=== PATIENT | female | born 1980 | race Caucasian/White ===

== ENCOUNTER 2016-07-13 13:21 | Inpatient (IN) | payer MEDICAID, OTHER ==
--- NOTE | 2016-07-13 14:48 | ED ---
General Adult HPI - General Source: patient, RN notes reviewed Mode of arrival: ambulatory Limitations: no limitations <Jaziel Prince - Last Filed: 07/13/16 14:46> <Blair Carrasco - Last Filed: 07/13/16 17:03> - General Chief complaint: Psychiatric Symptoms Stated complaint: Depression Time Seen by Provider: 07/13/16 14:35 - History of Present Illness Initial comments: Patient is a pleasant 36-year-old female presenting to the emergency department with depression. Patient states symptoms have gotten worse over the past week or 2. Patient is unclear why. Patient has suicidal thoughts with thoughts of overdosing on heroin. Patient does have a history of intentional heroin overdose to harm herself in the past. No homicidal thoughts. No hallucinations. No other drug use. No alcohol use. Patient is trying to get herself off of heroin. Patient feels somewhat anxious regarding that. (Jaziel Prince) - Related Data Home Medications Medication Instructions Recorded Confirmed Insulin Glargine [Lantus] 50 unit SQ HS 10/11/13 07/13/16 ALPRAZolam [Xanax] 0.5 mg PO TID PRN 07/13/16 07/13/16 Ibuprofen [Motrin] 800 mg PO TID PRN 07/13/16 07/13/16 Insulin NPL/Insulin Lispro 45 unit SQ AC-TID 07/13/16 07/13/16 [HumaLOG MIX 50-50 VIAL] Allergies Allergy/AdvReac Type Severity Reaction Status Date / Time propoxyphene AdvReac Nausea & Verified 07/13/16 15:21 Vomiting Review of Systems ROS Other: All systems not noted in ROS Statement are negative. Constitutional: Denies: fever Eyes: Denies: eye pain ENT: Denies: ear pain Respiratory: Denies: cough Cardiovascular: Denies: chest pain Endocrine: Denies: fatigue Gastrointestinal: Denies: abdominal pain Genitourinary: Denies: urgency Musculoskeletal: Denies: back pain Skin: Denies: rash Neurological: Denies: headache Psychiatric: Reports: anxiety, depression, suicidal thoughts. Denies: auditory hallucinations, visual hallucinations, homicidal thoughts <Jaziel Prince - Last Filed: 07/13/16 14:46> ROS Other: All systems not noted in ROS Statement are negative. <Blair Carrasco - Last Filed: 07/13/16 17:03> ROS Statement: Those systems with pertinent positive or pertinent negative responses have been documented in the HPI. Past Medical History Past Medical History: Diabetes Mellitus Additional Past Medical History / Comment(s): no appetite History of Any Multi-Drug Resistant Organisms: MRSA Date of last positivie culture/infection: 2010 MDRO Source:: leg Past Surgical History: Section Past Psychological History: Anxiety Smoking Status: Current every day smoker Past Alcohol Use History: None Reported Past Drug Use History: Heroin, Prescription Drug Abuse <Jaziel Prince - Last Filed: 07/13/16 14:46> General Exam Limitations: no limitations General appearance: alert, in no apparent distress Head exam: Present: atraumatic Eye exam: Present: normal appearance, PERRL ENT exam: Present: normal oropharynx Neck exam: Present: normal inspection Respiratory exam: Present: normal lung sounds bilaterally Cardiovascular Exam: Present: regular rate, normal rhythm GI/Abdominal exam: Present: soft. Absent: tenderness Extremities exam: Present: normal inspection. Absent: pedal edema, calf tenderness Neurological exam: Present: alert Psychiatric exam: Present: flat affect Skin exam: Present: normal color <Jaziel Prince - Last Filed: 07/13/16 14:46> Medical Decision Making <Jaziel Prince - Last Filed: 07/13/16 14:46> <Blair Carrasco - Last Filed: 07/13/16 17:03> - Medical Decision Making The patient was evaluated by EPS department and patient will be admitted for inpatient treatment of depression. (Blair Carrasco) - Lab Data Lab Results 07/13/16 07/13/16 Range/Units 15:00 15:41 POC Glucose (mg/dL) 298 H (75-99) mg/dL POC Glu Chin Strap Sewer ID Ema Oliveira Urine Opiates Screen Detected H (NotDetected) Ur Oxycodone Screen Not Detected (NotDetected) Urine Methadone Screen Not Detected (NotDetected) Ur Propoxyphene Screen Not Detected (NotDetected) Ur Barbiturates Screen Not Detected (NotDetected) U Tricyclic Antidepress Not Detected (NotDetected) Ur Phencyclidine Scrn Not Detected (NotDetected) Ur Amphetamines Screen Not Detected (NotDetected) U Methamphetamines Scrn Not Detected (NotDetected) U Benzodiazepines Scrn Not Detected (NotDetected) Urine Cocaine Screen Not Detected (NotDetected) U Marijuana (THC) Screen Not Detected (NotDetected) Disposition <Jaziel Prince - Last Filed: 07/13/16 14:46> <Blair Carrasco - Last Filed: 07/13/16 17:03> Clinical Impression: Depression Disposition: TRANSFER TO PSYCH HOSP/UNIT Condition: Stable
[2016-07-13 15:46] LABS: Glucose,Whole Blood 298 mg/dL (75-99)
[2016-07-13] MEDS ORDERED: INSULIN REGULAR 100 UNIT/ML VIAL SQ STA (15:46)
[2016-07-13] MEDS ORDERED: MAGNESIUM HYDROXIDE 2,400 MG/10 ML CUP PO PRN (16:42)
[2016-07-13] MEDS ORDERED: MAG HYDROX/AL HYDROX/SIMETH 30 ML CUP PO PRN (16:42)
[2016-07-13 17:17] LABS: Glucose,Whole Blood 347 mg/dL (75-99)
[2016-07-13] MEDS: NICOTINE 21MG/24HR PATCH TRANSDERM SCH (17:17)
[2016-07-13] MEDS: LORazepam 1 MG TAB PO PRN ×2 (17:19→21:58)
[2016-07-13 17:54] LABS: Glucose,Whole Blood 376 mg/dL (75-99)
[2016-07-13] MEDS: INSULIN LISPRO (humaLOG) 300 UNIT/3 ML VIAL SQ SCH ×2 (18:08→20:11)
[2016-07-13 20:03] LABS: Glucose,Whole Blood 236 mg/dL (75-99)
[2016-07-13] MEDS: ACETAMINOPHEN TAB 325 MG TAB PO PRN (20:17)
[2016-07-13] MEDS ORDERED: ONDANSETRON 4 MG/2 ML VIAL IM PRN (20:34)
[2016-07-13] MEDS ORDERED: ONDANSETRON 4 MG TAB PO PRN (20:34)
[2016-07-13] MEDS ORDERED: LOPERAMIDE 2 MG CAP PO PRN (20:37)
[2016-07-13] MEDS ORDERED: OLANZapine ODT 5 MG TAB PO PRN (20:40)
[2016-07-13] MEDS: cloNIDine HCL 0.2 MG TAB PO SCH (20:52)
[2016-07-14 05:54] LABS: Glucose,Whole Blood 334 mg/dL (75-99)
[2016-07-14] MEDS: INSULIN LISPRO (humaLOG) 300 UNIT/3 ML VIAL SQ SCH ×7 (07:51→19:52)
[2016-07-14] MEDS: NICOTINE 21MG/24HR PATCH TRANSDERM SCH (07:54)
[2016-07-14] MEDS: cloNIDine HCL 0.2 MG TAB PO SCH ×3 (09:03→20:13)
[2016-07-14] MEDS: ACETAMINOPHEN TAB 325 MG TAB PO PRN (09:26)
[2016-07-14 09:30] LABS: Basophils # (A) 0.1 k/uL (0-0.2); Basophils % (A) 1 %; CH 28.5; CHCM 32.1; Eosinophils # (A) 0.2 k/uL (0-0.7); Eosinophils % (A) 2 %; HDW 2.61; HGB 13.8 gm/dL (11.4-16.0); Luc # (Auto) 0.19; Luc % (Auto) 3; Lymphocytes # (A) 1.9 k/uL (1.0-4.8); Lymphocytes % (A) 27 %; MCH 28.6 pg (25.0-35.0); MCHC 32.1 g/dL (31.0-37.0); MCV 89.2 fL (80.0-100.0); Mean Platelet Volume 7.9; Monocytes # (A) 0.5 k/uL (0-1.0); Monocytes % (A) 7 %; Neutrophils # (A) 4.3 k/uL (1.3-7.7); Neutrophils % (A) 61 %; RBC 4.82 m/uL (3.80-5.40); RDW 13.8 % (11.5-15.5); WBC 7.1 k/uL (3.8-10.6); WBC (Perox) 6.92
[2016-07-14 09:56] LABS: ALT 28 U/L (9-52); AST 26 U/L (14-36); Alkaline Phosphatase 52 U/L (38-126); Anion Gap 9 mmol/L; Blood Urea Nitrogen 11 mg/dL (7-17); Calcium 8.9 mg/dL (8.4-10.2); Carbon Dioxide 24 mmol/L (22-30); Chloride 102 mmol/L (98-107); Glucose 409 mg/dL (74-99); Non-African American GFR(MDRD) >60 (>60 ml/min/1.73 sqM); Potassium 4.5 mmol/L (3.5-5.1); Sodium 135 mmol/L (137-145); Total Protein 6.9 g/dL (6.3-8.2)
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
[2016-07-14 11:11] LABS: Hemoglobin A1C 13.3 % (4.2-6.1)
[2016-07-14 12:48] LABS: Glucose,Whole Blood 447 mg/dL (75-99)
[2016-07-14 13:39] VITALS: BMI 28.8
[2016-07-14] MEDS: LORazepam 1 MG TAB PO PRN (14:19)
--- NOTE | 2016-07-14 14:28 | P.CONS ---
History of Present Illness - Reason for Consult Consult date: 07/14/16 Medical management Requesting physician: Karin Cannon - Chief Complaint Severe depression and suicidal ideation, all. Abuse, diabetes not controll - History of Present Illness 36-year-old female who has been drug use or for a while smoked heavily for long time and known to have history of diabetes used to seen Dr. Norton until a few weeks ago when she left town and coming back to town not a clear whether she's been to see him back or not has not had any medical management for diabetes. Patient has been trying to quit.. For long time but keep falling off the wagon repeatedly. Patient apparently become extremely depress and more suicidal with the frequent. It use her friend drove her over to demurs department at [facility] where was seen and evaluated patient was admitted to the psych unit with the above problem. Review of Systems Constitutional: Reports anorexia, Reports fatigue, Reports lethargy, Reports weight gain, Denies as per HPI, Denies chills, Denies chronic headaches, Denies chronic pain, Denies daytime sleepiness, Denies fever, Denies malaise, Denies night sweats, Denies poor appetite, Denies sweats, Denies weakness, Denies weight loss Eyes: bilateral as per HPI Ears, nose, mouth and throat: Reports nasal congestion, Reports sinus pain, Reports sinus pressure, Denies as per HPI, Denies ant. neck pain, Denies bleeding gums, Denies dental pain, Denies dysphagia, Denies epistaxis, Denies headache, Denies hoarseness, Denies mouth pain, Denies nasal discharge, Denies neck fullness/pressure, Denies neck lump, Denies nose pain, Denies odynophagia, Denies post-nasal drip, Denies swelling in mouth, Denies swelling in throat, Denies sore throat, Denies vertigo, Denies voice changes Breasts: bilateral: as per HPI Cardiovascular: Denies as per HPI, Denies chest pain, Denies claudication, Denies decreased exercise tolerance, Denies dyspnea on exertion, Denies edema, Denies high blood pressure, Denies irregular heart beat, Denies leg edema, Denies lightheadedness, Denies orthopnea, Denies palpitations, Denies paroxysmal nocturnal dyspnea, Denies phlebitis, Denies rapid heart beat, Denies shortness of breath, Denies syncope Respiratory: Reports congestion, Reports cough, Denies as per HPI, Denies cough with sputum, Denies dyspnea, Denies excessive sputum, Denies hemoptysis, Denies home oxygen, Denies pain, Denies pain on inspiration, Denies pleurisy, Denies respiratory infections, Denies sleep apnea, Denies snoring, Denies wheezing Gastrointestinal: Reports bloating, Reports dyspepsia, Reports indigestion, Reports nausea, Denies as per HPI, Denies abdominal pain, Denies belching, Denies BRBPR, Denies change in bowel habits, Denies coffee ground emesis, Denies constipation, Denies diarrhea, Denies early satiety, Denies excessive gas , Denies heartburn, Denies hematemesis, Denies hematochezia, Denies jaundice, Denies lactose intolerance, Denies loss of appetite, Denies melena, Denies vomiting Genitourinary: Reports stress incontinence, Reports urge incontinence, Reports urgency, Reports urinary frequency, Denies as per HPI, Denies abnormal vaginal bleeding, Denies decreased libido, Denies difficulty conceiving, Denies difficulty voiding, Denies dysmenorrhea, Denies dyspareunia, Denies dysuria, Denies flank pain, Denies genital sores, Denies hematuria, Denies hot flashes, Denies incomplete emptying, Denies kidney stones, Denies menorrhagia, Denies mixed incontinence, Denies nocturia, Denies pelvic pain, Denies post void dribbling, Denies , Denies prolapse symptoms, Denies vaginal discharge, Denies vaginal dryness, Denies vaginal itching, Denies vaginal odor Musculoskeletal: Reports loss of height, Reports myalgias, Reports neck pain, Denies as per HPI, Denies arm numbness/tingling, Denies atrophy, Denies fractures, Denies frequent falls, Denies gait dysfunction, Denies hot joints, Denies leg numbness/tingling, Denies limitation of motion, Denies low back pain , Denies morning stiffness, Denies muscle cramps, Denies muscle weakness, Denies neck stiffness, Denies prior amputations, Denies redness of joints, Denies shooting arm pain, Denies shooting leg pain Musculoskeletal: bilateral: ankle pain Integumentary: Reports pruritus, Reports rash, Denies as per HPI, Denies acne, Denies boils, Denies brittle nails, Denies change in hair/nails, Denies color changes, Denies darkening of skin, Denies depigmentation, Denies dryness, Denies foot/leg ulcers, Denies growths, Denies hirsutism, Denies lesions, Denies onychomycosis, Denies sores, Denies striae, Denies unusual bruising, Denies wounds Neurological: Reports balance difficulties, Reports tic, Reports tingling, Denies as per HPI, Denies aphasia, Denies ataxia, Denies burning pain, Denies change in mentation, Denies change in smell/taste, Denies change in speech, Denies confusion, Denies convulsions, Denies double vision, Denies gait dysfunction, Denies head injury, Denies headaches, Denies hearing difficulties, Denies lack of coordination, Denies loss of vision, Denies memory loss, Denies migraines, Denies motor disturbance, Denies numbness, Denies paralysis, Denies paresthesias, Denies seizures, Denies sensory deficit, Denies spasticity, Denies syncope, Denies transient paralysis, Denies tremors, Denies vertigo, Denies weakness, Denies visual changes Psychiatric: Reports anhedonia, Reports anxiety, Reports anxiety attacks, Reports depression, Reports disorientation, Reports memory loss, Reports mood swings, Reports paranoia, Reports sadness/tearfulness, Denies as per HPI, Denies change in appetite, Denies change in libido, Denies change in sleep habits, Denies confusion, Denies difficulty concentrating, Denies hallucinations , Denies hopelessness, Denies hypersomnia, Denies insomnia, Denies irritability , Denies sleep disturbances, Denies suicidal ideation Endocrine: Reports deepening of the voice, Reports excessive sweating, Reports excessive thirst, Denies as per HPI, Denies cold intolerance, Denies fatigue, Denies flushing, Denies heat intolerance, Denies high blood sugars, Denies increase in ring/shoe/hat size, Denies low blood sugars, Denies nocturia, Denies palpitations, Denies polydipsia, Denies polyphagia, Denies polyuria, Denies proptosis, Denies recent glucocorticoid use, Denies thyroid mass, Denies weight change Hematologic/Lymphatic: Reports easy bruising, Denies as per HPI, Denies easy bleeding, Denies lymphadenopathy, Denies lymphedema, Denies thrombophilia Allergic/Immunologic: Reports allergic rhinitis, Denies as per HPI, Denies anaphylaxis, Denies angioedema, Denies gluten intolerance, Denies persistent infections, Denies seasonal allergies, Denies urticaria, Denies wheezing Past Medical History Past Medical History: Diabetes Mellitus Additional Past Medical History / Comment(s): no appetite History of Any Multi-Drug Resistant Organisms: MRSA Year Discovered:: 2010 MDRO Source:: leg Past Surgical History: Section Past Psychological History: Anxiety Smoking Status: Current every day smoker Past Alcohol Use History: None Reported Past Drug Use History: Heroin, Prescription Drug Abuse Medications and Allergies Home Medications Medication Instructions Recorded Confirmed Type Insulin Glargine [Lantus] 50 unit SQ HS 10/11/13 07/13/16 History ALPRAZolam [Xanax] 0.5 mg PO TID PRN 07/13/16 07/13/16 History Ibuprofen [Motrin] 800 mg PO TID PRN 07/13/16 07/13/16 History Insulin NPL/Insulin Lispro 45 unit SQ AC-TID 07/13/16 07/13/16 History [HumaLOG MIX 50-50 VIAL] Allergies Allergy/AdvReac Type Severity Reaction Status Date / Time propoxyphene AdvReac Nausea & Verified 07/13/16 15:21 Vomiting Physical Exam Vitals: Vital Signs Temp Pulse Pulse Resp BP BP Pulse Ox 07/14/16 10:55 101 H 16 101/58 07/14/16 09:04 111 H 83/53 07/14/16 05:43 97.6 F 112 H 18 92/57 07/13/16 20:53 111 H 16 104/70 07/13/16 16:59 97.1 F L 71 18 114/70 99 Intake and Output 07/13/16 07/14/16 07/14/16 22:59 06:59 14:59 Other: Weight 76.113 kg Patient Weight 07/15/16 06:59 Weight 76.113 kg - Constitutional General appearance: no average body habitus, cooperative, no disheveled, no mild distress, no morbidly obese, no acute distress, no obese, no severe distress, no thin - EENT Eyes: no abnormal pupil, no anicteric sclerae, no disc margins sharp, no edentulous, no EOMI, no PERRLA, no fundus normal, no photophobia, no dentition normal, no poor dentition, no ptosis, no scleral icterus, normal appearance ENT: pharyngeal erythema Ears: bilateral: normal - Neck Neck: no lymphadenopathy, normal ROM, no other, no rigidity, no stridor, no thyromegaly Carotids: bilateral: upstroke normal Thyroid: bilateral: normal size - Respiratory Respiratory: bilateral: CTA, diminished - Cardiovascular Rhythm: regular Heart sounds: normal: S1, S2 Abnormal Heart Sounds: systolic murmur - Gastrointestinal General gastrointestinal: no absent bowel sounds, decreased bowel sounds, distended, no hepatomegaly, no hyperactive bowel sounds, no normal bowel sounds , no organomegaly, no rigid, no scaphoid, soft, no splenomegaly, no tenderness, no umbilical hernia, no ventral hernia - Integumentary Integumentary: no calor, cellulitis, no cyanotic, no decreased turgor, no flushed, no jaundiced, normal, no normal turgor, pale, rash, no ulcer - Neurologic Neurologic: CNII-XII intact - Musculoskeletal Musculoskeletal: gait normal, generalized weakness, strength equal bilaterally, no right sided weakness, no left sided weakness - Psychiatric Psychiatric: A&O x's 3, appropriate affect Results CBC & Chem 7: 07/14/16 09:04 07/14/16 09:04 Labs: Abnormal Lab Results - Last 24 Hours (Table) 07/13/16 07/13/16 07/13/16 Range/Units 15:00 15:41 16:57 Sodium (137-145) mmol/L Creatinine (0.52-1.04) mg/dL Glucose (74-99) mg/dL POC Glucose (mg/dL) 298 H 347 H (75-99) mg/dL Hemoglobin A1c (4.2-6.1) % Urine Opiates Screen Detected H (NotDetected) 07/13/16 07/13/16 07/14/16 Range/Units 17:51 20:01 05:51 Sodium (137-145) mmol/L Creatinine (0.52-1.04) mg/dL Glucose (74-99) mg/dL POC Glucose (mg/dL) 376 H 236 H 334 H (75-99) mg/dL Hemoglobin A1c (4.2-6.1) % Urine Opiates Screen (NotDetected) 07/14/16 07/14/16 07/14/16 Range/Units 09:04 09:04 12:44 Sodium 135 L (137-145) mmol/L Creatinine 0.40 L (0.52-1.04) mg/dL Glucose 409 H (74-99) mg/dL POC Glucose (mg/dL) 447 H (75-99) mg/dL Hemoglobin A1c 13.3 H (4.2-6.1) % Urine Opiates Screen (NotDetected) Assessment and Plan Plan: 1 severe depression and suicidal ideation: Patient was hospitalized and started on Zyprexa Ativan and Catapres. 2 type 2 diabetes on insulin: Patient be started on Humalog 10 units before meals meals and bedtime with a sliding scales along with Lantus 50 units at bedtime. 3 hypertension: Patient will be on a clonidine 0.2 mg 3 times a day. 4 smoking: Smoking cessation was addressed patient will be on Habitrol patch 21 mg daily. 5 multiple substance abuse and dependency: Patient will need rehab when she is ready. 6 severe GERD: Patient is on Pepcid 20 mg daily. 7 severe neuropathy: Can benefit in the next few weeks from being on gabapentin titrated dose. 8 chronic varicose vein and mild PAD: Was seen vascular last time over a year ago she is highly recommended to follow-up with vascular as an outpatient. [address] Cannon thank you very much for the consult if I can be any further help to you, please let me know.
[2016-07-14 16:59] LABS: Glucose,Whole Blood 226 mg/dL (75-99)
[2016-07-14 19:50] LABS: Glucose,Whole Blood 315 mg/dL (75-99)
[2016-07-14] MEDS ORDERED: INSULIN GLARGINE 100 UNIT/ML 10 ML VIAL SQ SCH (21:00)
[2016-07-15 06:23] LABS: Glucose,Whole Blood 213 mg/dL (75-99)
[2016-07-15] MEDS: cloNIDine HCL 0.2 MG TAB PO SCH ×3 (08:39→22:52)
[2016-07-15] MEDS: NICOTINE 21MG/24HR PATCH TRANSDERM SCH (08:39)
[2016-07-15] MEDS: FAMOTIDINE 20 MG TAB PO SCH (08:39)
[2016-07-15] MEDS: INSULIN LISPRO (humaLOG) 300 UNIT/3 ML VIAL SQ SCH ×8 (08:40→21:26)
[2016-07-15] MEDS: LORazepam 1 MG TAB PO PRN ×2 (08:48→23:08)
[2016-07-15] MEDS: ACETAMINOPHEN TAB 325 MG TAB PO PRN (08:48)
--- NOTE | 2016-07-15 11:00 | P.PN ---
Progress Note - Text INTERVERAL HISTORY: Patient admitted through the emergency room for suicidal ideation and depression and opiate use severe. Patient reports that she is suicidal and depressed because things are not working out for her. Patient was vague but when asked specifically, she stated she can't find a job. She endorsed feelings of depression and worthlessness and hopelessness and helplessness. She does agree that she needs to stop using heroin, and thinks that maybe if she goes to live with her mother in [place] that she would be able to stop. States she stopped using methamphetamines about 2 years ago. Now only snorting heroin. States that her sister is going to call her tonight regarding the family's plan for her to go to [place]. Vague suicidal ideation. MENTAL STATUS EXAM:Patient alert and oriented 3, poor eye contact, disheveled in street clothing. Speech low volume, decreased rate and production. Coherent, logical and circumstantial thought process. No LEILANI, no FOI. No TB/TW/ TI Denied auditory and visual hallucinations. Denied paranoid ideation, delusions or IOR. Memory grossly intact Cognition below average Mood dysphoric, irritable, affect constricted, congruent with mood. + suicidal ideation, denies homicidal ideation. Insight none; Judgment grossly intact for treatment purposes ASSESSMENT: 36-year-old female, opiate use disorder, severe, mood disorder unspecified versus substance-induced mood disorder, suicidal ideation, homeless, unemployed. Patient with long history of polysubstance use which continues although most recently heroin. Unstable living situation although she is reporting her family is trying to help her to go to [place] in order to live with her mother. She has vague suicidal ideation but denies plan or intent , at least here on the unit. Unclear if a separate mood disorder exists, or if it is caused by the substances she uses. Anxiety/withdrawal. 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 Continue clonidine 0.2 mg 3 times a day when necessary withdrawal symptoms. We' ll consider offering a when necessary of 0.01 additionally. Add gabapentin for anxiety and neuropathy. Social work will work with patient for discharge planning. If patient is going to [place] no [facility] [address] liaison however if she is not going to [place] we will need to connect with [facility] for both substance use disorder and mood disorder. Adherence to treatment Participation in groups/ individual therapy, and other activities
[2016-07-15 11:10] LABS: Glucose,Whole Blood 257 mg/dL (75-99)
[2016-07-15] MEDS: GABAPENTIN 100 MG CAP PO SCH ×3 (12:41→21:26)
[2016-07-15 12:46] LABS: Glucose,Whole Blood 193 mg/dL (75-99)
[2016-07-15 17:22] LABS: Glucose,Whole Blood 121 mg/dL (75-99)
[2016-07-15 20:19] LABS: Glucose,Whole Blood 200 mg/dL (75-99)
[2016-07-15] MEDS ORDERED: INSULIN GLARGINE 100 UNIT/ML 10 ML VIAL SQ SCH (21:00)
[2016-07-16 01:18] VITALS: TEMP 97.8
[2016-07-16 06:10] LABS: Glucose,Whole Blood 161 mg/dL (75-99)
[2016-07-16] MEDS: INSULIN LISPRO (humaLOG) 300 UNIT/3 ML VIAL SQ SCH ×6 (08:04→17:19)
[2016-07-16] MEDS: LORazepam 1 MG TAB PO PRN (09:55)
[2016-07-16] MEDS: FAMOTIDINE 20 MG TAB PO SCH (09:55)
[2016-07-16] MEDS: GABAPENTIN 100 MG CAP PO SCH ×2 (09:55→16:22)
[2016-07-16] MEDS: cloNIDine HCL 0.2 MG TAB PO SCH ×2 (09:55→16:22)
[2016-07-16] MEDS: NICOTINE 21MG/24HR PATCH TRANSDERM SCH (09:55)
[2016-07-16 12:14] LABS: Glucose,Whole Blood 145 mg/dL (75-99)
--- NOTE | 2016-07-16 15:09 | P.DS ---
Providers Date of admission: 07/13/16 16:38 Expected date of discharge: 07/16/16 Attending physician: Karin Cannon MD Consults: 07/13/16 16:42 Consult Physician Routine Consulting Provider: Todd Torres Reason/Comments: H and P and medical management Do you want consulting provider notified?: Yes Primary care physician: Stated None Hospital Course: Patient was admitted through the emergency room for suicidal ideation and depression and opiate use severe. Patient approached web content writer today stating that she had a ride to [place]. Patient was admitted for suicidal ideation and depression because she had no place to live, yesterday she reported that her mom was willing to allow her to live with her in [place] and that the family was working on a way to help her get there. This morning she reports that her uncle is going to come up from [facility] for 2 weeks and then they will return to [place] and she will live with her mother. She reports that she is no longer suicidal and not depressed, she denied feelings of worthlessness and hopelessness and helplessness. She believes that she will be able to avoid using heroin in [place]. She also states that when she is discharged she will stay with her sister here and that will prevent her from using heroin. She asks if she'll be able to receive Xanax when she is discharged. Informed that she would not. MENTAL STATUS EXAM:Patient alert and oriented 3, poor eye contact, disheveled in street clothing. Speech low volume, decreased rate and production. Coherent, logical and circumstantial thought process. No LEILANI, no FOI. No TB/TW/ TI Denied auditory and visual hallucinations. Denied paranoid ideation, delusions or IOR. Memory grossly intact Cognition below average Mood neutral, affect full range, congruent with mood. Denies suicidal ideation, denies homicidal ideation. Insight none; Judgment grossly intact for treatment purposes ASSESSMENT: 36-year-old female, opiate use disorder, severe, substance-induced mood disorder, no suicidal ideation, homeless but can live with sister until she goes to [place]. Patient with long history of polysubstance use which continues although most recently heroin. Denies suicidal ideation no plan or intent. No evidence of opioid withdrawal. opioid use disorder, severe substance-induced mood disorder [facility] will come pick her up. Hospitalist will prescribe her physical medications. Continue clonidine 0.2 mg 3 times a day for anxiety, no benzos should be prescribed. Add gabapentin for anxiety and neuropathy. Social work will work with patient for discharge planning. Adherence to treatment Patient Condition at Discharge: Stable Plan - Discharge Summary New Discharge Prescriptions: cloNIDine HCL [Catapres] 0.2 mg PO TID #90 tab Gabapentin [Neurontin] 100 mg PO TID #90 cap Insulin Glargine [Lantus] 55 unit SQ HS #5 vial INSULIN LISPRO (humaLOG) [humaLOG (formulary)] 12 unit SQ ACHS #5 vial Nicotine 21Mg/24Hr Patch [Habitrol] 1 patch TRANSDERM DAILY #14 patch Discharge Medication List Ibuprofen [Motrin] 800 mg PO TID PRN 07/13/16 [History] Gabapentin [Neurontin] 100 mg PO TID #90 cap 07/16/16 [Rx] INSULIN LISPRO (humaLOG) [humaLOG (formulary)] 0 unit SQ ACHS vial 07/16/16 [Rx ] INSULIN LISPRO (humaLOG) [humaLOG (formulary)] 12 unit SQ ACHS #5 vial 07/16/16 [Rx] Insulin Glargine [Lantus] 55 unit SQ HS #5 vial 07/16/16 [Rx] Nicotine 21Mg/24Hr Patch [Habitrol] 1 patch TRANSDERM DAILY #14 patch 07/16/16 [ Rx] cloNIDine HCL [Catapres] 0.2 mg PO TID #90 tab 07/16/16 [Rx] Follow up Appointment(s)/Referral(s): [facility] [Outside] - 07/19/16 10:00 am (Intake 07/19/16 at 10:00 am kiarra Covarrubias ) None,Stated [Primary Care Provider] - 1-2 days Discharge Disposition: HOME SELF-CARE
[2016-07-16 16:24] VITALS: BP 106/63; PULSE 97; RESP 16
== END 2016-07-16 17:24 | disposition home or self-care (01) | DRG 897 ==
LOC: EC 13:21 → 3MHU 16:38
PROVIDERS: ADMIT Psychiatry & Neurology Addiction Medicine; ATTEND Psychiatry & Neurology Addiction Medicine
PROC: HZ2ZZZZ Detoxification Services for Substance Abuse Treatment (ICD-10-PCS; principal; 2016-07-13)
DX: F11.24 Opioid dependence with opioid-induced mood disorder (principal); E11.40 Type 2 diabetes mellitus with diabetic neuropathy, unspecified; R45.851 Suicidal ideations; F32.2 Major depressive disorder, single episode, severe without psychotic features; F41.9 Anxiety disorder, unspecified; E11.51 Type 2 diabetes mellitus with diabetic peripheral angiopathy without gangrene; F19.90 Other psychoactive substance use, unspecified, uncomplicated; F11.23 Opioid dependence with withdrawal; I83.90 Asymptomatic varicose veins of unspecified lower extremity; J30.9 Allergic rhinitis, unspecified; K21.9 Gastro-esophageal reflux disease without esophagitis; I10 Essential (primary) hypertension; F17.200 Nicotine dependence, unspecified, uncomplicated; Z91.5 Personal history of self-harm; Z59.0 Homelessness; Z79.4 Long term (current) use of insulin; Z71.6 Tobacco abuse counseling; Z71.3 Dietary counseling and surveillance; Z88.5 Allergy status to narcotic agent; Z86.14 Personal history of Methicillin resistant Staphylococcus aureus infection; Z86.19 Personal history of other infectious and parasitic diseases; Z56.0 Unemployment, unspecified; Z91.19 Patient's noncompliance with other medical treatment and regimen; Z81.1 Family history of alcohol abuse and dependence; Z81.8 Family history of other mental and behavioral disorders
CPT/HCPCS: 36415; 80053; 80306; 83036; 84443; 85025; 99285